=== PATIENT | female | born 2000 | race Caucasian/White ===

== ENCOUNTER → 2020-09-25 09:26 | Outpatient (CLI) | payer OTHER, SELFPAY ==
[2020-09-25 12:34] LABS: Internal QC Validated? YES +Cl - CLEAR BKGD; Pregnancy, Serum, hCG Quali. NEGATIVE Negative
[2020-09-25 12:52] LABS: AST(SGOT) 13 U/L (15-37); Alanine Aminotransfer ALT/SGPT 22 U/L (13-56); Cholesterol 200 mg/dL (200); High Density Lipoprotein 70 mg/dL; Triglycerides 97 mg/dL; Very Low Density Lipoprotein 19 mg/dL (5-40)
== END ==
PROVIDERS: Referring Provider Dermatology; Visit Provider Dermatology
DX: L70.0 Acne vulgaris (principal); Z79.899 Other long term (current) drug therapy
CPT/HCPCS: 36415; 80061; 84450; 84460; 84703

== ENCOUNTER → 2020-10-30 14:13 | Outpatient (CLI) | payer OTHER, SELFPAY ==
[2020-10-30 16:47] LABS: Internal QC Validated? YES +Cl - CLEAR BKGD; Pregnancy, Urine Negative Negative
== END ==
PROVIDERS: Referring Provider Dermatology; Visit Provider Dermatology
DX: L70.0 Acne vulgaris (principal); Z79.899 Other long term (current) drug therapy
CPT/HCPCS: 81025

== ENCOUNTER → 2020-12-02 16:26 | Outpatient (CLI) | payer OTHER, SELFPAY ==
[2020-12-02 17:45] LABS: Internal QC Validated? YES +Cl - CLEAR BKGD; Pregnancy, Urine Negative Negative
== END ==
PROVIDERS: Referring Provider Dermatology; Visit Provider Dermatology
DX: L70.0 Acne vulgaris (principal); Z79.899 Other long term (current) drug therapy
CPT/HCPCS: 81025

== ENCOUNTER → 2021-01-10 10:11 | Outpatient (CLI) | payer OTHER, SELFPAY ==
[2021-01-10 12:53] LABS: AST(SGOT) 21 U/L (15-37); Alanine Aminotransfer ALT/SGPT 27 U/L (13-56); Cholesterol 234 mg/dL (200); High Density Lipoprotein 76 mg/dL; Triglycerides 137 mg/dL; Very Low Density Lipoprotein 27 mg/dL (5-40)
[2021-01-10 13:11] LABS: hCG Titer Quant., Serum < 1 mIU/mL (1-3)
[2021-01-11 08:44] LABS: LDL, Direct 120295 135 mg/dL (0-99)
== END ==
PROVIDERS: Referring Provider Dermatology; Visit Provider Dermatology
DX: Z79.899 Other long term (current) drug therapy (principal)
CPT/HCPCS: 80061; 83721; 84450; 84460; 84702

== ENCOUNTER → 2021-01-21 16:54 | Outpatient (CLI) | payer OTHER, SELFPAY ==
[2021-01-21 18:03] LABS: Internal QC Validated? YES +Cl - CLEAR BKGD; Pregnancy, Urine Negative Negative
== END ==
PROVIDERS: Referring Provider Dermatology; Visit Provider Dermatology
DX: Z79.899 Other long term (current) drug therapy (principal)
CPT/HCPCS: 81025

== ENCOUNTER → 2021-02-10 16:37 | Outpatient (CLI) | payer OTHER, SELFPAY ==
[2021-02-10 18:10] LABS: Internal QC Validated? YES +Cl - CLEAR BKGD; Pregnancy, Urine Negative Negative
== END ==
PROVIDERS: Referring Provider Dermatology; Visit Provider Dermatology
DX: Z79.899 Other long term (current) drug therapy (principal)
CPT/HCPCS: 81025